=== PATIENT | female | born 1945 | race Caucasian/White ===

== ENCOUNTER 2019-03-03 05:24 | Day surgery (SDC) ==
--- NOTE | 2019-02-25 14:12 | EKG Report ---
Test Performed on : 02/25/2019 2:06:40 PM Test Reason : PAT Blood Pressure : / mmHG Vent. Rate : 054 BPM Atrial Rate : 054 BPM P-R Int : 162 ms QRS Dur : 088 ms QT Int : 382 ms P-R-T Axes : 048 012 012 degrees QTc Int : 362 ms Sinus bradycardia. Otherwise normal ECG No previous ECGs available Confirmed by Manjit Curtis MD ([id number]) on 02/25/2019 6:16:08 PM
[2019-02-25 14:24] LABS: HEMATOCRIT 40.7 % (37.0-47.0); HEMOGLOBIN 12.9 g/dL (12.0-16.0); MCH 27.7 PG (27-31); MCHC 31.7 g/dL (33-37); MCV 87.3 FL (81-99); MPV 9.9 FL (7.4-10.4); RBC 4.66 XMIL (4.2-5.4); RDW 16.5 % (11.5-14.5); WBC 9.68 X1000 (4.8-10.8)
[2019-02-25 16:16] LABS: CALCIUM 9.6 mg/dL (8.8-10.2); CREATININE 1.3 mg/dL (0.5-0.9); POTASSIUM 4.6 mmol/L (3.5-5.1)
--- NOTE | 2019-03-01 11:30 | HISTORY AND PHYSICAL ---
CHIEF COMPLAINT: Cystic mass in the right kidney with right flank pains. HISTORY OF PRESENT ILLNESS: This 74-year-old female has a long history of either a large complex cyst versus 2 simple cysts immediately adjacent with a very thin septation between the 2 in the right upper pole kidney. Initially these did not appear to cause any pains, but recently she has been having intermittent right flank pains and is not sure if it is back pain or pain from the cyst. A CT stone search revealed the large cyst in the right upper pole kidney as well as a 1 cm cystic area in the left lower pole kidney with a calcification. The patient desires removal of the large right upper pole renal cyst. PAST MEDICAL HISTORY: Hypertension, rheumatoid arthritis. CURRENT MEDICATIONS: Metoprolol. PAST SURGICAL HISTORY: Tubal ligation. SOCIAL HISTORY: No tobacco or alcohol use. She does drink coffee. ALLERGIES: No known drug allergies. REVIEW OF SYSTEMS: Usually in good health. She denies any recent pulmonary, cardiac or bowel problems. PHYSICAL EXAMINATION: GENERAL: A mildly obese, age-apparent, normally developed, white female, oriented in all ways and cooperative. HEENT: Normal for age. LUNGS: Clear. CARDIOVASCULAR: Regular rate and rhythm with a grade 2 to 3/6 holosystolic murmur. ABDOMEN: Mildly obese, soft, nontender. No hepatosplenomegaly or masses. Normal bowel sounds. No increased flank pain with palpation. GENITOURINARY: Normal external female. Atrophic vaginal mucosa. No adnexal masses or tenderness. Palpably normal bladder, cervix and uterus for age. Grade 2 cystocele/rectocele. EXTREMITIES: No clubbing, cyanosis, or edema. NEUROLOGIC: No focal deficits. IMPRESSION: 1. Large right upper pole renal cyst. 2. A small, somewhat complex left lower pole renal cyst. PLAN: laparoscopic robot-assisted removal of the large right upper pole cyst. The planned procedure, benefits versus risks, and possible complications including but not limited to bleeding, infection, recurrence of cyst, need for further surgery was discussed. She seems to understand and desires to proceed. cc: River Duvall MD
[2019-03-03] MEDS ORDERED: LR 1,000 ML ONE ×2 (05:56→07:58)
[2019-03-03] MEDS ORDERED: KEFZOL 1 GM/D5W 2 GM/100 ML IVPB ONE (05:56)
[2019-03-03] MEDS ORDERED: REGLAN ONE (05:56)
[2019-03-03] MEDS ORDERED: PEPCID ONE (05:56)
[2019-03-03] MEDS ORDERED: DIPRIVAN 1% ONE (06:22)
[2019-03-03] MEDS ORDERED: ZEMURON ONE ×2 (06:26→07:54)
[2019-03-03] MEDS ORDERED: XYLOCAINE-MPF 2% ONE (06:26)
[2019-03-03] MEDS ORDERED: MARCAINE 0.25% PF ONE (06:44)
[2019-03-03] MEDS ORDERED: LOPRESSOR ONE (07:18)
[2019-03-03] MEDS ORDERED: FENTANYL ONE (07:22)
[2019-03-03 08:48] LABS: URINE SOURCE CATH
[2019-03-03] MEDS ORDERED: DECADRON ONE (08:52)
[2019-03-03] MEDS ORDERED: ZOFRAN ONE (08:52)
[2019-03-03] MEDS ORDERED: ROBINUL ONE (08:56)
[2019-03-03] MEDS ORDERED: NEOSTIGMINE ONE (08:56)
[2019-03-03 09:17] LABS: BILIRUBIN URINE NEGATIVE (NEGATIVE); BLOOD URINE NEGATIVE (NEGATIVE); COLOR YELLOW; GLUCOSE URINE NEGATIVE (NEGATIVE); KETONE URINE NEGATIVE (NEGATIVE); LEUKOCYTES URINE NEGATIVE (NEGATIVE); NITRITE URINE NEGATIVE (NEGATIVE); PROTEIN URINE NEGATIVE (NEGATIVE); TURBIDITY URINE CLEAR (CLEAR); UROBILINOGEN URINE NORMAL (NORMAL)
[2019-03-03 09:19] LABS: UR EPITHELIAL CELLS <10 /HPF (<10); URINE BACTERIA NEGATIVE /HPF; URINE RBC <10 /HPF (<10); URINE WBC <10 /HPF (<10)
[2019-03-03] MEDS ORDERED: BRIDION ONE (09:24)
[2019-03-03] MEDS ORDERED: NS 1,000 ML ONE (09:45)
--- NOTE | 2019-03-03 10:05 | OPERATIVE NOTE ---
PROCEDURE DATE: 03/03/2019 SURGEON: River Duvall MD PREOPERATIVE DIAGNOSIS: Complex right renal cyst. POSTOPERATIVE DIAGNOSIS: Two large immediately adjacent simple renal cysts. PROCEDURE PERFORMED: Laparoscopic robot-assisted right partial nephrectomy. ANESTHESIA: General endotracheal. FINDINGS: Two large right posterolateral renal cysts that were immediately adjacent to each other. INDICATIONS FOR PROCEDURE: This 74-year-old female has a long history of renal cysts. These are getting larger and they are either 1 large cyst with a septation or 2 separate simple cysts. She developed right flank pain and wants to have these cysts removed to see if that will help with the discomfort. DESCRIPTION OF PROCEDURE: After informed consent was obtained from the patient and her receiving IV antibiotics, she was taken to the main operating room, placed in the supine position. General endotracheal anesthesia was achieved. She was then bumped up to about 45 degrees on the table with the right side up. A Turner catheter was placed. She was fixed to the table such that she could be rotated to her right and become almost horizontal and to her left to become in a flank position with the right side. She was then prepped and draped in the usual sterile fashion for abdominal and right flank surgery. A small incision was made 1 handbreadth above the umbilicus to the right of the midline. A Veress needle was used to achieve pneumoperitoneum. The camera was placed, and the robot trocars were placed with the number 1 arm just below the costal margin at the midclavicular line, the number 2 arm placed in the midclavicular line below the umbilicus. The collections assistant port was placed about 2 fingerbreadths below the umbilicus to the right of midline. The number 4 arm was placed just above the right anterior superior iliac spine, and a 5 mm port was placed just below the xiphoid process. The patient was then rotated such that her right side was up to a near flank position. The robot was docked. The procedure was started by taking down some abdominal wall adhesions. The right colon was then incised along the white line of Toldt coming across the lower pole kidney and reflected medially. The duodenum was exposed and partially kocherized. Gerota's fascia was then incised and the largest cyst visualized at the upper pole, and this was dissected until the cyst was completely exposed except for the very most posterior portion. The 2nd cyst was likewise visualized and it was dissected down to its inferior border and laterally as well. An incision was made in the largest cyst that was most superior and all the fluid removed. It was about 8 cm in diameter. The inferior cyst did not decompress indicating a probable separate cyst. The wall of the most superior cyst was completely removed and sent to Pathology. The inferior cyst was likewise incised. It was about 5 cm in diameter, and it was completely removed as well. The bottom of the cyst was packed with Surgicel SNoW. The perirenal fat was reapproximated over the cyst with clips. Pneumoperitoneum was dropped to 3 cm of water. No bleeding areas were seen. The pneumoperitoneum was restored. Again, no bleeding areas were seen. The specimens were removed through the collections assistant port without difficulty. The pneumoperitoneum was resolved. The robot ports are removed after undocking the robot. The patient was placed in the supine position. A 2-0 Vicryl on a UR-6 was placed through the abdominal rectus fascia at the camera port to close that defect. The other port defects could not be palpated. The skin was reapproximated with clips. Island dressings were placed. Estimated blood loss less than 20 mL. She tolerated the procedure well, extubated and taken to the recovery room in good condition. cc: River Duvall MD
[2019-03-03] MEDS ORDERED: OXY IR PO PRN ×2 (10:45)
[2019-03-03] MEDS ORDERED: NS 1,000 ML IV SCH (10:45)
[2019-03-03] MEDS ORDERED: PHENERGAN IV PRN (10:45)
[2019-03-03] MEDS ORDERED: BENADRYL LIQUID PO PRN (10:45)
[2019-03-03] MEDS ORDERED: LABETALOL IV PRN (10:45)
[2019-03-03] MEDS ORDERED: OFIRMEV 1000 MG/ISOTONIC SOLN 1,000 MG/100 ML BOTTLE IV PRN (10:45)
[2019-03-03] MEDS ORDERED: SODIUM CHLORIDE 0.9% INJ PRN (11:00)
[2019-03-03] MEDS ORDERED: KEFZOL 2 GM/D5W 2 GM/50 ML IVPB IV SCH (15:00)
[2019-03-03 16:18] VITALS: BP 148/74
[2019-03-03] MEDS ORDERED: PEPCID PO SCH (21:00)
[2019-03-03] MEDS ORDERED: PERIDEX MT SCH (21:00)
[2019-03-03] MEDS ORDERED: COLACE PO SCH (21:00)
== END 2019-03-03 19:49 | disposition home or self-care (01) ==
LOC: 4N 05:24 → OPS 05:24 → PAT 05:24 → OPS 19:49
PROVIDERS: ATTEND Urology